=== PATIENT | female | born 1960 | race Two or more races ===

== ENCOUNTER 2023-08-21 04:04 | Emergency (ER) | payer OTHER ==
[~2023-08-21] VITALS: Ht 172.7 cm; Wt 83.5 kg
[2023-08-21] MEDS ORDERED: LEVOTHYROXINE25 MCG (04:23)
[2023-08-21] MEDS ORDERED: EFFEXOR XR150 MG (04:24)
[2023-08-21] MEDS ORDERED: LIPITOR20 MG (04:24)
[2023-08-21 05:42] LABS: HEMATOCRIT 40.1 % (36.0-45.00); HEMOGLOBIN 12.8 g/dL (12.0-15.00); MEAN CELL VOLUME 91.4 fL (80.00-100.00); MEAN CORPUSCULAR HEMOGLOBIN 29.2 pg (27.00-32.0); PLATELET COUNT 318 K/uL (150-450); RED BLOOD COUNT 4.39 M/uL (4.00-6.00); RED CELL DISTRIBUTION WIDTH 13.9 % (11.5-14.5)
[2023-08-21 06:04] LABS: AMYLASE 34 U/L (25-115); LIPASE 34 U/L (13-75)
[2023-08-21 06:06] LABS: ALBUMIN 3.9 gm/dL (3.4-5.0); BILIRUBIN TOTAL 0.49 mg/dL (0.3-1.2); CALCIUM 9.1 mg/dL (8.5-10.1); CREATININE SERUM 1.28 mg/dL (0.55-1.02); GFR 42.12; GLOBULINA 3.8 G/DL (2.4-3.5); POTASSIUM 3.89 mEq/L (3.5-5.1); TOTAL PROTEIN 7.7 gm/dL (6.4-8.2)
== END 2023-08-21 07:09 | disposition home or self-care (01) ==
LOC: ER 04:04
PROVIDERS: General Practice
DX: R19.7 Diarrhea, unspecified (principal); E11.9 Type 2 diabetes mellitus without complications